=== PATIENT | male | born 1990 | race Caucasian/White ===

== ENCOUNTER 2024-07-28 20:04 | Inpatient (IN) | payer MEDICAID, OTHER ==
[~2024-07-28] VITALS: Ht 175.3 cm; Wt 59.6 kg
[~2024-07-28 20:04] MED LIST: ERGO1250; FOLI0.8T53 PO; LACT10SO7 MT; LEVE1000 MT; LEVO88TA2 PO; MULT-1146 MT; PROT40 PO; RIFA550T PO; RISP0.5T62 MT
[2024-07-28] MEDS: CEFTRIAXONE 2GM/50ML 50 ML IV ONE (21:30)
[2024-07-28 21:31] LABS: HEMATOCRIT. 24.2 % (42.0-52.0); MEAN CORPUSCULAR HEMOGLOBIN 30.8 pg (28.0-32.0); MEAN CORPUSCULAR HGB CONC 33.2 g/dL (31.0-37.0); MEAN CORPUSCULAR VOLUME 92.8 fL (80.0-94.0); MEAN PLATELET VOLUME 6.9 fl (7.4-10.4); PLATELET 159 x1000/uL (130-400); RED CELL DISTRIBUTION WIDTH 18.5 % (11.6-14.6); WHITE BLOOD COUNT 9.2 x1000/uL (4.5-11.0)
[2024-07-28 21:32] LABS: DIFFERENTIAL COMMENT 1
[2024-07-28 21:38] LABS: CHLORIDE 94 mEq/L (98-107); POTASSIUM 3.3 mEq/L (3.5-5.1); SODIUM 128 mEq/L (136-145)
[2024-07-28 21:39] LABS: CARBON DIOXIDE 25 mEq/L (21-32)
[2024-07-28 21:40] LABS: CALCIUM 7.6 mg/dL (8.7-10.4)
[2024-07-28 21:43] LABS: INR 1.2; PARTIAL THROMBOPLASTIN TIME 31.8 sec (23.4-31.0); PROTHROMBIN TIME 12.9 sec (9.6-11.0)
[2024-07-28 21:45] LABS: GLUCOSE 124 mg/dL (70-105); TROPONIN I HIGH SENSITIVITY 4 ng/L (3.0-53); UREA NITROGEN BLOOD 20 mg/dL (9-23)
[2024-07-28 21:46] LABS: ALANINE AMINOTRANSFERASE 24 IU/L (10-49); ALBUMIN 2.1 g/dL (3.2-4.8); AMMONIA 35 uMol/L (<32); ASPARTATE AMINOTRANSFERASE 26 IU/L (<34); CREATINE KINASE 51 IU/L (46-171); LACTIC ACID 3.3 mmol/L (0.4-2.0)
[2024-07-28 21:47] LABS: BILIRUBIN DIRECT 0.7 mg/dL (<=3.0); BILIRUBIN TOTAL 1.2 mg/dL (0.1-1.0); CREATININE 2.3 mg/dL (0.6-1.3); PROTEIN TOTAL 4.6 g/dL (6.0-8.3)
[2024-07-28 21:48] LABS: ETHANOL BLOOD < 10 mg/dL (<10)
[2024-07-28 22:07] LABS: ANISOCYTOSIS 1+; PLATELET ESTIMATE NORMAL
[2024-07-28] MEDS: AZITHROMYCIN 500MG/250ML 250 ML IV SCH (23:00)
[2024-07-29 01:00] VITALS: BP 122/78; PULSE 111; RESP 18; TEMP 36.44736; TEMP 36.4736; O2SAT 98
[2024-07-29] MEDS ORDERED: LIDO700A30 TP (01:17)
[2024-07-29] MEDS ORDERED: HYDR-4001 PO (01:17)
[2024-07-29] MEDS ORDERED: MIDO5TAB4 PO (01:17)
[2024-07-29] MEDS ORDERED: RISP1TAB93 PO (01:17)
[2024-07-29] MEDS ORDERED: MIDODRINE HCL 5MG TABLET PO PRN (01:45)
[2024-07-29] MEDS: MORPHINE SULFATE 2 MG/ML INJ (NOT FOR IM USE) IV NR (02:44)
[2024-07-29 08:00] VITALS: BP 114/67; PULSE 98; RESP 18; TEMP 36.50292; O2SAT 100
[2024-07-29 08:43] LABS: CHLORIDE 92 mEq/L (98-107); POTASSIUM 3.6 mEq/L (3.5-5.1); SODIUM 126 mEq/L (136-145)
[2024-07-29 08:44] LABS: CARBON DIOXIDE 25 mEq/L (21-32)
[2024-07-29 08:45] LABS: CALCIUM 8.1 mg/dL (8.7-10.4)
[2024-07-29 08:50] LABS: CREATININE 2.4 mg/dL (0.6-1.3); GLUCOSE 95 mg/dL (70-105); HEMATOCRIT 26.2 % (42.0-52.0); HEMOGLOBIN 8.8 g/dL (14.0-18.0); MEAN CORPUSCULAR HEMOGLOBIN 31.1 pg (28.0-32.0); MEAN CORPUSCULAR HGB CONC 33.5 g/dL (31.0-37.0); MEAN CORPUSCULAR VOLUME 92.6 fL (80.0-94.0); PLATELET 166 x1000/uL (130-400); RED BLOOD CELL COUNT 2.83 mill/uL (4.7-6.1); RED CELL DISTRIBUTION WIDTH 18.5 % (11.6-14.6); UREA NITROGEN BLOOD 24 mg/dL (9-23); WHITE BLOOD COUNT 10.2 x1000/uL (4.5-11.0)
[2024-07-29 08:51] LABS: ALANINE AMINOTRANSFERASE 24 IU/L (10-49); ALBUMIN 2.4 g/dL (3.2-4.8); ASPARTATE AMINOTRANSFERASE 27 IU/L (<34)
[2024-07-29 08:52] LABS: BILIRUBIN DIRECT 0.6 mg/dL (<=3.0); BILIRUBIN TOTAL 1.1 mg/dL (0.1-1.0); PHOSPHORUS 4.3 mg/dL (2.5-4.9)
[2024-07-29] MEDS: LIDOCAINE 5% PATCH TOP SCH (09:00)
[2024-07-29] MEDS: MULTIVITAMINS,THER W-MINERALS TABLET PO SCH (09:07)
[2024-07-29] MEDS: RIFAXIMIN 550 MG TABLET PO SCH (09:07)
[2024-07-29] MEDS: FOLIC ACID 1MG TABLET PO SCH (09:07)
[2024-07-29] MEDS: LEVOTHYROXINE SODIUM 88MCG TABLET PO SCH (09:07)
[2024-07-29 09:08] LABS: HEPATITIS B SURFACE ANTIGEN NEGATIVE (Negative)
[2024-07-29] MEDS: LEVETIRACETAM 500MG/5ML CUP PO SCH (09:09)
[2024-07-29] MEDS: HYDROCODONE/ACETAMINOPHEN 10/325MG TABLET PO PRN (09:16)
[2024-07-29 09:29] LABS: HEPATITIS C AB NON REACTIVE (Neg) (Negative)
[2024-07-29 12:00] VITALS: BP 120/74; PULSE 89; RESP 20; TEMP 36.61404; O2SAT 99
[2024-07-29] MEDS ORDERED: LIDOCAINE HCL 1% 10 MG/ML 10ML VIAL ONE (13:10)
[2024-07-29 15:40] LABS: HEPATITIS B SURFACE ANTIGEN NEGATIVE (Negative)
[2024-07-29 16:00] VITALS: BP 107/57; PULSE 95; RESP 18; TEMP 36.61404; O2SAT 100
[2024-07-29 16:01] LABS: HEPATITIS A AB IGM NEGATIVE (Negative)
[2024-07-29 16:02] LABS: HEPATITIS B CORE AB IGM NEGATIVE (Negative); HEPATITIS C AB NON REACTIVE (Neg) (Negative)
[2024-07-29 20:00] VITALS: BP 107/59; PULSE 92; RESP 17; TEMP 36.22512; O2SAT 98
[2024-07-29] MEDS: RISPERIDONE 1MG TABLET PO SCH (20:58)
[2024-07-30] VITALS (11 sets, daily range): BP systolic 88–119; BP diastolic 39–72; PULSE 75–97; RESP 15–18; TEMP 36.114–36.72516; O2SAT 96–100
[2024-07-30] MEDS ORDERED: SODIUM BICARBONATE 4% 2.4MEQ/5ML VIAL IV ONE (07:56)
== END 2024-07-30 17:56 | disposition home or self-care (01) | DRG 279 ==
LOC: ER 20:04 → 7WST 22:21 → EDBEDREQ 22:28 → EDBEDREQSVC 22:28
PROVIDERS: ADMIT Internal Medicine; ATTEND Internal Medicine
PROC: 0W9G3ZZ Drainage of Peritoneal Cavity, Percutaneous Approach (ICD-10-PCS; principal; 2024-07-29)
PROC: 0W993ZZ Drainage of Right Pleural Cavity, Percutaneous Approach (ICD-10-PCS; 2024-07-30)
PROC: 5A1D70Z Performance of Urinary Filtration, Intermittent, Less than 6 Hours Per Day (ICD-10-PCS; 2024-07-30)
DX: K72.90 Hepatic failure, unspecified without coma (principal); E43 Unspecified severe protein-calorie malnutrition; E87.20 Acidosis, unspecified; R18.8 Other ascites; J90 Pleural effusion, not elsewhere classified; E88.09 Other disorders of plasma-protein metabolism, not elsewhere classified; E87.1 Hypo-osmolality and hyponatremia; K74.60 Unspecified cirrhosis of liver; E87.70 Fluid overload, unspecified; E86.0 Dehydration; E87.6 Hypokalemia; Y90.9 Presence of alcohol in blood, level not specified; D64.9 Anemia, unspecified; F10.21 Alcohol dependence, in remission; I51.7 Cardiomegaly; G40.909 Epilepsy, unspecified, not intractable, without status epilepticus; R29.810 Facial weakness; N18.6 End stage renal disease; Z99.2 Dependence on renal dialysis; Z55.6 Problems related to health literacy; Z68.1 Body mass index [BMI] 19.9 or less, adult
CPT/HCPCS: 32555; 36415; 49083; 71045; 76604; 80048; 80076; 80320; 82140; 82550; 83605; 83880; 84100; 84484; 85025; 85027; 86705; 86709; 86850; 86900; 87340; 90935; 93005; 99291; A4663; J0456; J0696; J2003; J2270; J3490; G0480